=== PATIENT | male | born 2000 | race African-American/Black ===

== ENCOUNTER 2023-05-27 16:19 | Inpatient (IN) | payer OTHER, SELFPAY ==
[2023-05-27 16:27] VITALS: BP 150/84; PULSE 94; RESP 18; TEMP 36.8; O2SAT 98; BMI 24.4
--- NOTE | 2023-05-27 16:36 | ED.GENADULT ---
HPI - General Adult General Chief complaint: Psychiatric Symptoms Stated complaint: R lower flank pain w/ blood in urine Time Seen by Provider: 05/27/23 16:36 Source: patient, EMS, RN notes reviewed and old records reviewed Mode of arrival: EMS History of Present Illness HPI narrative: 23-year-old male with no known past medical history presenting to the ED via EMS complaining of suicidal ideations without plan, requesting help for his mental health. Patient reports intermittent hematuria over the past few weeks, was seen at a hospital in [place] and told he has a parasite, prescribed medication which he has been non compliant. Also reports RLQ abdominal pain. has been going with his prescribed medications however ran out a day ago. Reports using THC, denies other illicit substances or EtOH. Denies hallucination/HI, diarrhea/constipation, fever, dysuria Onset (ago): day(s) Related Data Home Medications Medication Instructions Recorded Confirmed No Known Home Meds 05/27/23 05/27/23 Allergies Allergy/AdvReac Type Severity Reaction Status Date / Time No Known Allergies Allergy Verified 05/27/23 16:46 Review of Systems Review of Systems: Constitutional: No Fever, No Fatigue, No Malaise ENT/Mouth: No Ear Pain, No Nasal Congestion, No sore throat, No Rhinorrhea, No Swallowing Difficulty Eyes: No Eye Pain, No Swelling, No Redness, No Vision Changes Cardiovascular: No Chest Pain, No SOB, No Edema, No Palpitations Respiratory: No Cough, No Sputum, No Dyspnea Gastrointestinal: No Nausea, No Vomiting, No Diarrhea, No Constipation, + Abdominal pain, No Hematochezia, No Melena Genitourinary: No irregular bleeding, No Dysuria, No Urinary Frequency, + Hematuria, No Urinary Incontinence/retention, No Urgency, No Flank Pain Musculoskeletal: No joint pain, No Myalgias, No Joint Swelling Skin: No Skin Lesions, No rash Neuro: No Weakness, No Numbness, No Headache Psych: No Anxiety/Panic, +Depression, + SI, No HI/AH/VH, + Social Issues, Yes all other systems are reviewed and are negative Constitutional: Constitutional: Reports as per [facility] Past Medical History Attestation statement: The following information was validated with the patient. Source: old records reviewed Social History Social History Alcohol intake: never Smoked in Last 30 Days: Yes Use of substances other than those prescribed or required for medical reasons: Yes Substance Use Type: Marijuana Advance Directives: No Advance Directives Information Provided: No Physical Exam ED Vital Signs: Vital Signs - 24 hr 05/27/23 16:27 Temperature 98.2 F Pulse Rate 94 Respiratory Rate 18 Blood Pressure 150/84 H Pulse Oximetry 98 Oxygen Delivery Method Room Air BMI result Body Mass Index 24.4 Const General: cooperative, healthy appearing and no acute distress Orientation/consciousness: patient oriented x3 Limitations: no limitations HENMT Head: Yes normal to inspection and Yes atraumatic Ears: hearing grossly normal bilaterally General nose exam: Normal external nose present Face and sinus: Yes normal facial exam Eyes General: appearance normal, both eyes and all related structures EOM: EOMs intact bilaterally Neck Neck: Yes normal visual inspection and Yes no meningeal signs Resp Effort & Inspection: normal respiratory effort and no respiratory distress Auscultation: clear to auscultation bilaterally Cardio Rate: regular rate Heart sounds: S1 normal heart sound present and S2 normal heart sound present GI Inspection: Yes normal to inspection Palpation (GI): Soft to palpation, nontender, no guarding and not rigid General: Yes no CVA tenderness Back/Spine/Pelvis Back: no CVA tenderness Skin Rashes: no rashes Wounds: no wounds Neuro General: patient oriented x3, tone normal and no meningeal signs Cranial nerves: Yes CN's II-XII intact bilaterally Gait exam (Neuro): Normal gait present Extrem General: Yes normal to inspection Psych Appearance: grossly normal Attitude: cooperative Thought content: Suicidality present, no homicidality and Depressive thoughts present Course Course Course Narrative: -labs reassuring/unremarkable. UA negative without blood -tox screen positive for fentanyl. > patient medically cleared for CARE team evaluation. Physician observation initiated at 22:40 -0230--ED care transferred to Dr. Adair pending CARE eval Medical Decision Making Medical Decision Making MDM Narrative: 23-year-old male with no known past medical history presenting to the ED via EMS complaining of suicidal ideations without plan, requesting help for his mental health. On exam vital signs stable, NAD, nontoxic appearing, expresses increasing depression/suicidality, abdomen soft/nontender, no CVAT. Concern for medication noncompliance vs depression vs UTI or ?Renal stone. Low suspicion for pyelo, appendicitis, diverticulitis, testicular torsion without tenderness on exam Plan: Labs, tox screen, UA, CARE team consult Please refer to course for remaining clinical decision making, interpretation of labs/imaging results, and discussions with consultants and/or family members. Differential Diagnosis Differential Diagnoses: The differential diagnosis associated with the presentation includes As above Admission/Observation Consideration of admission/observation: Escalation of care including admission/observation considered Consult Healthcare Provider Management of the patient was discussed with: Behavioral Health Provider Lab Data MDM Lab Attestation statement: I reviewed the patient's lab results. 05/27/23 17:11 05/27/23 17:11 Labs: Lab Results 05/27/23 Range/Units 17:11 WBC 7.5 (4.8-10.8) X10*3/uL RBC 5.81 H (4.60-5.80) X10*6/uL Hgb 16.0 (14.0-18.0) g/dl Hct 47.9 (42.0-52.0) % MCV 82.4 (80.0-98.0) fL MCH 27.5 (27.0-33.0) pg MCHC 33.4 (31.0-36.0) g/dl RDW 12.4 (11.0-16.0) % Plt Count 149 L (160-400) X10*3/uL MPV 10.2 (9.4-12.4) fL Immature Gran % (Auto) 0.3 (0.0-0.4) % Neut % (Auto) 76.9 H (45-73) % Lymph % (Auto) 15.9 L (20-40) % [place] % (Auto) 6.5 (2-11) % Eos % (Auto) 0.1 (0-4) % Baso % (Auto) 0.3 (0-2) % Lymph # (Auto) 1.2 (1.2-4.9) X10*3/uL [place] # (Auto) 0.5 (0.1-1.2) X10*3/uL Eos # (Auto) 0.0 (0.0-0.4) X10*3/uL Baso # (Auto) 0.0 (0.0-0.2) X10*3/uL Abs Immat Gran (auto) 0.02 (0.00-0.03) X10*3/uL Absolute Neuts (auto) 5.8 (2.0-8.3) x10*3/uL Absolute Nucleated RBC 0.000 (0.0-0.012) X10*3/uL Nucleated RBC % (auto) 0.0 (0.0-0.2) /100WBC Sodium 141 (135-145) mmol/L Potassium 4.3 (3.3-5.1) mmol/L Chloride 104 (96-108) mmol/L Carbon Dioxide 26 (22-29) mmol/L Anion Gap 15 (12-20) BUN 19 H (9-16) mg/dL Creatinine 1.21 (0.5-1.4) mg/dL Estim Creat Clear Calc 102.4 Estimated GFR > 60 Random Glucose 92 (60-115) mg/dL Calcium 9.8 (8.4-10.2) mg/dL Total Bilirubin 0.5 (0.0-1.0) mg/dL AST 22 (5-37) U/L ALT 16 (0-40) U/L Alkaline Phosphatase 43 (39-117) U/L Total Protein 7.7 (6.5-8.0) g/dL Albumin 4.7 (3.5-5.0) g/dL Lipase 15 (8-78) U/L Urine Color Yellow Urine Appearance Clear Urine pH 6.0 (5.0-9.0) Ur Specific [place] 1.025 (1.005-1.025) Urine Protein Negative (Neg-Trace) mg/dL Urine Glucose (UA) Negative (Negative) mg/dL Urine Ketones Trace (Negative) mg/dL Urine Blood Negative (Negative) Urine Nitrite Negative (Negative) Ur Leukocyte Esterase Negative (Negative) Salicylates < 5.0 L (15-30) mg/dL Urine Opiates Screen Not Detected (Not Detect) Urine Fentanyl Screen POSITIVE H (Not Detect) Acetaminophen < 17 (<30) mcg/mL Ur Barbiturates Screen Not Detected (Not Detect) Ur Phencyclidine Scrn Not Detected (Not Detect) Ur Amphetamines Screen Not Detected (Not Detect) U Benzodiazepines Scrn Not Detected (Not Detect) Urine Cocaine Screen Not Detected (Not Detect) U Marijuana (THC) Screen Not Detected (Not Detect) Ethyl Alcohol < 10 mg/dL COVID-19 ([facility]A) Negative (Negative) COVID-19 Clin Com See Note Radiology Impression Discussion of test interpretation with radiology: I have reviewed the radiologist's reading. Independent Historian Clinical information obtained from an independent historian. History obtained from or confirmed by: EMS External Record Review External record reviewed: Inpatient record, Office record, Outpatient record, Prior outpatient labs, Prior outpatient radiology, Primary care record and Outside ED record Tests considered The following testing was considered but not selected: As above Social Determinants Patient?s care significantly limited by Social Determinants of Health including: Inadequate housing, Low income, Alcoholism and drug addiction in family, Problems related to primary support group, Unemployment and Other Social Determinant of Health Discharge Plan Discharge Clinical Impression: Suicidal ideation Patient Disposition: Still a Patient Prescriptions: No Action No Known Home Meds Interventions: [place]-Suicide Risk Severity Scale Last Done: 05/27/23 16:51
[2023-05-27 17:17] LABS: MANUAL DIFF FLAG NO
[2023-05-27 17:21] LABS: Appearance Urine Clear; Color Urine Yellow; Glucose Urine UA Negative (Negative); Leukocyte Esterase Urine Negative (Negative); Nitrite Urine Negative (Negative); Specific Gravity - Urine 1.025 (1.005-1.025); Urine Blood Negative (Negative); Urine Ketones Trace mg/dL (Negative); Urine Protein Negative (Neg-Trace)
[2023-05-27 17:22] LABS: Basophils Percent Auto 0.3 % (0-2); Eosinophils Percent Auto 0.1 % (0-4); Hematocrit 47.9 % (42.0-52.0); Imm Gran Abs Auto 0.02 X10*3/uL (0.00-0.03); Imm Gran Pct Auto 0.3 % (0.0-0.4); Lymphocytes Absolute Auto 1.2 X10*3/uL (1.2-4.9); Lymphocytes Percent Auto 15.9 % (20-40); Mean Corpuscular HGB Conc 33.4 g/dl (31.0-36.0); Mean Corpuscular Hemoglobin 27.5 pg (27.0-33.0); Mean Corpuscular Volume 82.4 fL (80.0-98.0); Mean Platelet Volume 10.2 fL (9.4-12.4); Monocytes Absolute Auto 0.5 X10*3/uL (0.1-1.2); Monocytes Percent Auto 6.5 % (2-11); Neutrophils Absolute Auto 5.8 x10*3/uL (2.0-8.3); Neutrophils Percent Auto 76.9 % (45-73); Platelet Count 149 X10*3/uL (160-400); Red Blood Count 5.81 X10*6/uL (4.60-5.80); Red Cell Distribution Width 12.4 % (11.0-16.0); White Blood Count 7.5 X10*3/uL (4.8-10.8)
[2023-05-27 17:26] LABS: Amphetamine Screen Urine Not Detected (Not Detect); Barbiturates, Urine Not Detected (Not Detect); Benzodiazepines Screen Urine Not Detected (Not Detect); Cannabinoid Screen Urine Not Detected (Not Detect); Cocaine Screen Urine Not Detected (Not Detect); Fentanyl, urine POSITIVE (Not Detect); Opiate Screen Urine Not Detected (Not Detect); Phencyclidine Screen Urine Not Detected (Not Detect)
[2023-05-27 17:34] LABS: COVID-19 Test Negative (Negative); IDNOW Serial# 08D9AD1C
[2023-05-27 17:50] LABS: Acetaminophen LAB < 17 mcg/mL (<30); Alanine Aminotransferase 16 U/L (0-40); Albumin Level 4.7 g/dL (3.5-5.0); Alkaline Phosphatase 43 U/L (39-117); Anion Gap 15 (12-20); Aspartate Amino Transferase 22 U/L (5-37); Bilirubin Total 0.5 mg/dL (0.0-1.0); Blood Urea Nitrogen 19 mg/dL (9-16); Calcium 9.8 mg/dL (8.4-10.2); Carbon Dioxide 26 mmol/L (22-29); Chloride 104 mmol/L (96-108); Creatinine Clr Calc Pharmacy 102.4; Estimated Glomerular Filt Rate > 60; Ethanol < 10 mg/dL; Glucose Random 92 mg/dL (60-115); Lipase 15 U/L (8-78); Potassium 4.3 mmol/L (3.3-5.1); Salicylate < 5.0 mg/dL (15-30); Sodium 141 mmol/L (135-145); Total Protein 7.7 g/dL (6.5-8.0)
--- NOTE | 2023-05-27 19:45 | PC.NURSE ---
pt sleeping w/no distress. breathing well. +CMS. airway intact.
[2023-05-28 06:00] VITALS: BP 118/59; PULSE 62; RESP 16; TEMP 37.1; O2SAT 99
--- NOTE | 2023-05-28 06:33 | PC.NURSE ---
Patient slept through the night, no distress observed/reported, behavior non concerning, med rec completed/currently not on any medication, VSS, disposition per care team is section 12 inpatient bed search, labs completed/resulted, will continue to monitor.
[2023-05-28 15:25] VITALS: BP 142/64; PULSE 77; RESP 15; TEMP 36.4; O2SAT 98
--- NOTE | 2023-05-28 16:06 | PC.NURSE ---
Huy was in his room resting for most of the shift, appetite is good. No scheduled medications. No behavioral concerns.
[2023-05-28 16:26] VITALS: BP 130/61; PULSE 60; RESP 16; TEMP 36.4; BMI 23.9
[2023-05-28 16:54] VITALS: BP 130/61; PULSE 60; RESP 16; TEMP 36.4; O2SAT 98
--- NOTE | 2023-05-28 17:50 | PC.ADMIT ---
Pt is a 23y/o -[place] male admitted for increased depression and SI. Pt appears calm and cooperative, alert and oriented x4, Vitals sign stable, Covid negative, Tox screen positive for fentanyl. Pt reported that he is homeless, has no established outpatient providers including PCP, Psychiatrist and Psychotherapist and states he will need help establishing providers/half-way placement. Speech is within normal limit but low in terms of tone and volume. Pt reports low depression and anxiety at this time. denies SI/HI/AH/VH. Pt currently has impaired insight, judgment and impulse control as evidenced by Pt's history and presentation. Pt accepts to take flu shot as well as Nicotine gum. Admission orders obtained. Start tx plan. Pt is currently in his room resting, respirations are regular and unlabored. No apparent distress noted.
[2023-05-28] MEDS: traZODone HCL 50 MG TABLET PO (20:31)
[2023-05-29 06:00] VITALS: BP 102/48; PULSE 56; RESP 16; TEMP 36.5; O2SAT 97
[2023-05-29 08:35] LABS: Alanine Aminotransferase 13 U/L (0-40); Albumin Level 3.9 g/dL (3.5-5.0); Alkaline Phosphatase 37 U/L (39-117); Anion Gap 7 (12-20); Aspartate Amino Transferase 15 U/L (5-37); Bilirubin Total 0.3 mg/dL (0.0-1.0); Blood Urea Nitrogen 13 mg/dL (9-16); Carbon Dioxide 28 mmol/L (22-29); Chloride 108 mmol/L (96-108); Cholesterol 148 mg/dL (<200); Creatinine Clr Calc Pharmacy 104.1; Estimated Glomerular Filt Rate > 60; Glucose Fasting 101 mg/dL (60-99); HDL Cholesterol 53 mg/dL (>40); LDL Cholesterol Calculated 87 mg/dL (<100); Potassium 3.9 mmol/L (3.3-5.1); Sodium 139 mmol/L (135-145); Total Protein 6.4 g/dL (6.5-8.0); Triglycerides 44 mg/dL (<150)
--- NOTE | 2023-05-29 09:36 | HO.PSYADMNOT ---
HPI Date of Service: 05/29/23 Chief Complaint: SI Sources of Information: patient interviewed, chart reviewed and crisis/core team assessment reviewed HPI Subjective Notes: Regan Warning and Conditional Voluntary Narrative: Patient is a 23-year-old male, born in [facility] and living in [facility] since 10 years old who presents with depression and SI in the face of homelessness and being out of medication. Patient was recently at another hospital in [facility] and said he had medications there but ran out. He said it was Risperdal which helped his depression and he would like to started again. Patient says that he has been struggling with mental health issues for the past 3 or 4 years. Around that time he had conflicts with his family, lots of arguments any eventually had him go to a hospital and got a restraining order on; since then he has only briefly interacted with his family and has been otherwise homeless. He said for about a year he was at a program and on Zyprexa. He said there might have been a diagnosis of schizophrenia but he says his main diagnosis is depression. Patient denies any AVH or paranoid delusional thinking. He reiterates that he is very depressed and started having suicidal thoughts. Patient reports he has a parasite for which he was being given medications that he got at his last hospital but is not sure the name (creative writer cannot find any prescriptions listed). Patient denies any history of manic type episodes or behaviors; denies any drug or alcohol use or abuse other than cannabis which he smokes daily. Denies history of trauma. Past Psychiatric History: past psychiatric hospitalizations med trials: zyprexa, risperdal History of 2 suicide attempts by hanging, overdose Medical Evaluation Reviewed: Yes [facility] Medical History (Updated 05/29/23 @ 15:27 by David Peñaloza MD) Schizoaffective disorder, depressive type Family History: deferred Social History: born in [facility]; lived in [place]. Moved to [facility] around 10 years old. Patient said he has been traveling around [place] and sometimes in [facility], staying in very shelters Patient is estranged from his family since he was diagnosed with a mental illness about 3 or 4 years ago Substance History: Cannabis daily Trauma History: Denies Diagnostics Vital Signs (24Hr): Vital Signs - 24 hr 05/28/23 15:25 05/28/23 16:26 05/28/23 16:54 Temperature 97.5 F 97.5 F 97.5 F Pulse Rate 77 60 60 Respiratory Rate 15 16 16 Blood Pressure 142/64 H 130/61 130/61 Pulse Oximetry 98 98 Oxygen Delivery Method Room Air Room Air 05/29/23 06:00 Temperature 97.7 F Pulse Rate 56 Respiratory Rate 16 Blood Pressure 102/48 L Pulse Oximetry 97 Oxygen Delivery Method Room Air BMI result Body Mass Index 23.9 Labs 05/27/23 17:11 05/29/23 07:50 Labs: Laboratory Results - last 48 hr 05/27/23 05/29/23 17:11 07:50 WBC 7.5 RBC 5.81 H Hgb 16.0 Hct 47.9 MCV 82.4 MCH 27.5 MCHC 33.4 RDW 12.4 Plt Count 149 L MPV 10.2 Immature Gran % (Auto) 0.3 Neut % (Auto) 76.9 H Lymph % (Auto) 15.9 L [place] % (Auto) 6.5 Eos % (Auto) 0.1 Baso % (Auto) 0.3 Lymph # (Auto) 1.2 [place] # (Auto) 0.5 Eos # (Auto) 0.0 Baso # (Auto) 0.0 Abs Immat Gran (auto) 0.02 Absolute Neuts (auto) 5.8 Absolute Nucleated RBC 0.000 Nucleated RBC % (auto) 0.0 Sodium 141 139 Potassium 4.3 3.9 Chloride 104 108 Carbon Dioxide 26 28 Anion Gap 15 7 L BUN 19 H 13 Creatinine 1.21 1.19 Estim Creat Clear Calc 102.4 104.1 Estimated GFR > 60 > 60 Random Glucose 92 Fasting Glucose 101 H Calcium 9.8 9.0 D Total Bilirubin 0.5 0.3 AST 22 15 ALT 16 13 Alkaline Phosphatase 43 37 L Total Protein 7.7 6.4 L Albumin 4.7 3.9 Triglycerides 44 Cholesterol 148 LDL Cholesterol, Calc 87 HDL Cholesterol 53 Lipase 15 Urine Color Yellow Urine Appearance Clear Urine pH 6.0 Ur Specific [place] 1.025 Urine Protein Negative Urine Glucose (UA) Negative Urine Ketones Trace Urine Blood Negative Urine Nitrite Negative Ur Leukocyte Esterase Negative Salicylates < 5.0 L Urine Opiates Screen Not Detected Urine Fentanyl Screen POSITIVE H Acetaminophen < 17 Ur Barbiturates Screen Not Detected Ur Phencyclidine Scrn Not Detected Ur Amphetamines Screen Not Detected U Benzodiazepines Scrn Not Detected Urine Cocaine Screen Not Detected U Marijuana (THC) Screen Not Detected Ethyl Alcohol < 10 COVID-19 ([facility]) Negative COVID-19 Clin Com See Note Meds/Allergies Meds Home Medications Medication Instructions Recorded Confirmed Type No Known Home Meds 05/27/23 05/27/23 History Allergies Allergies Allergy/AdvReac Type Severity Reaction Status Date / Time No Known Allergies Allergy Verified 05/27/23 16:46 Mental Status Exam Mental Status Exam Narrative: Pt is alert and oriented; behavior is cooperative, polite, quiet and calm, lying in bed; patient is not in distress; dressed in hospital attire with unkempt hair and marginal hygiene; mood is described as depressed and affect congruent, blunted; eye contact appropriate; Speech is a little soft and a little slow; normal prosody; psychomotor retardation present; thought process is goal directed; Thought content is somewhat vacuous but on treatment for depression; no paranoid or delusional thoughts expressed; suicidal ideation present; no HI. Perhaps some mild speech latency; denies AVH Patients insight and judgment impaired Assessment & Plan Assessment & Plan (1) Schizoaffective disorder, depressive type: Status: Acute Code(s): F25.1 - Schizoaffective disorder, depressive type Plan Ptient is a 23-year-old male, born in [facility] and living in [facility] since 10 years old who presents with depression and SI in the face of homelessness and being out of medication. Patient was recently at another hospital in [facility] and said he had medications there but ran out. -patient reports that his only symptom is depression with SI; however he remembers the medication Risperdal having been helpful for his depression; also has been on Zyprexa, Cogentin and said at 1 point he thinks he was diagnosed with schizophrenia. Patient appears depressed. Could also be negative symptoms from psychosis. However he denies any other positive symptoms of psychosis and though somewhat reticent, so far he is organized in speech and behavior. Given his reported history of antipsychotic medication having been helpful will restart Risperdal -not sure what to make of his comment about having a parasite and being treated with medications; creative writer could not find history of prescription Plan: CV Q 15 minute checks Will restart Risperdal 1 mg b.i.d.; no idea what past dose was; however this comes in long-acting injectable which might be helpful for him Will start Cogentin 0.5 mg b.i.d. but make PRN Positive for fentanyl however patient denies any intentional opiate use and not in withdrawal; denies EtOH use Will attempt collateral (which he says is the only way he remains in contact with his family) Patient educated on: diagnosis, medication risk/benefits and substance abuse Informed Consent: understands Reason for continued inpatient stay Substantial Risk for: inability to function Statement Statement: I have reviewed the history and physical and performed a pertinent examination on my patient. No changes have occurred unless specified. If the History and Physical was not performed prior to admission, the Hospitalist's service will be consulted for completing the admission physical. Time Spent With Patient Time: Total time managing care of this patient today ____ minutes.
[2023-05-29] MEDS: risperiDONE 1 MG TABLET PO ×2 (14:53→19:56)
[2023-05-29 18:00] VITALS: BP 127/58; PULSE 68; TEMP 36.3
[2023-05-30 06:00] VITALS: BP 154/60; PULSE 84; RESP 16; TEMP 36.4; O2SAT 100
[2023-05-30] MEDS: risperiDONE 1 MG TABLET PO ×2 (08:45→21:18)
--- NOTE | 2023-05-30 10:53 | HO.PSYCHPN ---
Subjective Subjective Date of Service: 05/30/23 Reason For Visit: SI Interim History: Patient seen and discussed. Patient seen pacing the evans. He was polite and cooperative. He reported he feels Still a little depressed but more focused since being here. Reports he is tolerating medications well. He denies suicidality. He appears preoccupied with internal stimuli and has some latency in response. He has had no behavioral outbursts. Medication Compliance: Yes Review of Systems Review of Systems Constitutional: No Fever, No Fatigue, No Malaise ENT/Mouth: No Ear Pain, No Nasal Congestion, No sore throat, No Rhinorrhea, No Swallowing Difficulty Eyes: No Eye Pain, No Swelling, No Redness, No Vision Changes Cardiovascular: No Chest Pain, No SOB, No Edema, No Palpitations Respiratory: No Cough, No Sputum, No Dyspnea Gastrointestinal: No Nausea, No Vomiting, No Diarrhea, No Constipation, + Abdominal pain, No Hematochezia, No Melena Genitourinary: No irregular bleeding, No Dysuria, No Urinary Frequency, + Hematuria, No Urinary Incontinence/retention, No Urgency, No Flank Pain Musculoskeletal: No joint pain, No Myalgias, No Joint Swelling Skin: No Skin Lesions, No rash Neuro: No Weakness, No Numbness, No Headache Psych: No Anxiety/Panic, +Depression, + SI, No HI/AH/VH, + Social Issues, Yes all other systems are reviewed and are negative Constitutional: Reports as per HPI Mental Status Exam Mental Status Exam Narrative: Pt is alert and oriented; behavior is cooperative, polite, quiet and calm, lying in bed; patient is not in distress; dressed in hospital attire with unkempt hair and marginal hygiene; mood is described as depressed and affect congruent, blunted; eye contact appropriate; Speech is a little soft and a little slow; normal prosody; psychomotor retardation present; thought process is goal directed; Thought content is somewhat vacuous but on treatment for depression; no paranoid or delusional thoughts expressed; suicidal ideation present; no HI. Perhaps some mild speech latency; denies AVH Patients insight and judgment impaired Diagnostics Vital Signs (24Hr): Vital Signs - 24 hr 05/29/23 18:00 05/30/23 06:00 Temperature 97.4 F 97.5 F Pulse Rate 68 84 Respiratory Rate 16 Blood Pressure 127/58 L 154/60 H Pulse Oximetry 100 Oxygen Delivery Method Room Air BMI result Body Mass Index 23.9 Labs 05/27/23 17:11 05/29/23 07:50 Labs: Laboratory Results - last 48 hr 05/29/23 07:50 Sodium 139 Potassium 3.9 Chloride 108 Carbon Dioxide 28 Anion Gap 7 L BUN 13 Creatinine 1.19 Estim Creat Clear Calc 104.1 Estimated GFR > 60 Fasting Glucose 101 H Calcium 9.0 D Total Bilirubin 0.3 AST 15 ALT 13 Alkaline Phosphatase 37 L Total Protein 6.4 L Albumin 3.9 Triglycerides 44 Cholesterol 148 LDL Cholesterol, Calc 87 HDL Cholesterol 53 Medications Medications Current Medications Acetaminophen (Acetaminophen 325 Mg Tablet) 650 mg PO Q6H PRN PRN Reason: Headache/Pain Mild Scale (1-3) Al Hydroxide/Mg Hydroxide (Magnesium Hydrox/Alum Hydrox 30 Ml Oral.Susp) 30 ml PO Q6H PRN PRN Reason: Heartburn/Nausea Benztropine Mesylate (Benztropine Mesylate 0.5 Mg Tablet) 0.5 mg PO BID PRN PRN Reason: Dystonia/EPS Hydroxyzine HCl (Hydroxyzine Hcl 25 Mg Tablet) 25 mg PO Q6H PRN PRN Reason: Anxiety Magnesium Hydroxide (Milk Of Magnesia 30 Ml Oral.Susp) 30 ml PO DAILY PRN PRN Reason: Constipation Risperidone (Risperidone 1 Mg Tablet) 1 mg PO BID AIDAN Last Admin: 05/30/23 08:45 Dose: 1 mg Trazodone HCl (Trazodone Hcl 50 Mg Tablet) 50 mg PO BEDTIME MRX1 PRN PRN Reason: Insomnia Last Admin: 05/28/23 20:31 Dose: 50 mg Allergies Allergies Allergy/AdvReac Type Severity Reaction Status Date / Time No Known Allergies Allergy Verified 05/27/23 16:46 Assessment & Plan Assessment & Plan (1) Schizoaffective disorder, depressive type: Status: Acute Code(s): F25.1 - Schizoaffective disorder, depressive type Plan Ptient is a 23-year-old male, [facility] and living in [facility] since 10 years old who presents with depression and SI in the face of homelessness and being out of medication. Patient was recently at another hospital in [facility] and said he had medications there but ran out. -patient reports that his only symptom is depression with SI; however he remembers the medication Risperdal having been helpful for his depression; also has been on Zyprexa, Cogentin and said at 1 point he thinks he was diagnosed with schizophrenia. Patient appears depressed. Could also be negative symptoms from psychosis. However he denies any other positive symptoms of psychosis and though somewhat reticent, so far he is organized in speech and behavior. Given his reported history of antipsychotic medication having been helpful will restart Risperdal -not sure what to make of his comment about having a parasite and being treated with medications; communications writer could not find history of prescription Plan: CV Q 15 minute checks Will restart Risperdal 1 mg b.i.d.; no idea what past dose was; however this comes in long-acting injectable which might be helpful for him Will start Cogentin 0.5 mg b.i.d. but make PRN Positive for fentanyl however patient denies any intentional opiate use and not in withdrawal; denies EtOH use Will attempt collateral (which he says is the only way he remains in contact with his family) 05/30: Recently restarted Risperidone. Continue same. Reason for continued inpatient stay Substantial Risk for: inability to function and rapid decompensation Time Spent With Patient Time: Total time managing care of this patient today ____ minutes.
[2023-05-30] MEDS: traZODone HCL 50 MG TABLET PO (21:18)
[2023-05-30 21:50] VITALS: BP 117/57; PULSE 56; RESP 16; TEMP 36.7; O2SAT 100
[2023-05-31 08:20] VITALS: BP 123/60; PULSE 56; RESP 16; TEMP 35.9; O2SAT 98
[2023-05-31] MEDS: risperiDONE 1 MG TABLET PO ×2 (09:28→19:47)
--- NOTE | 2023-05-31 13:11 | HO.PSYCHPN ---
Subjective Subjective Date of Service: 05/31/23 Reason For Visit: SI Interim History: Patient seen and discussed. Patient seen pacing the evans. He was polite and cooperative. He reported he feels I'm better since being here. Reports he is tolerating medications well. He denies suicidality. He appears preoccupied and has some latency in response. He has had no behavioral outbursts. Review of Systems Review of Systems Constitutional: No Fever, No Fatigue, No Malaise ENT/Mouth: No Ear Pain, No Nasal Congestion, No sore throat, No Rhinorrhea, No Swallowing Difficulty Eyes: No Eye Pain, No Swelling, No Redness, No Vision Changes Cardiovascular: No Chest Pain, No SOB, No Edema, No Palpitations Respiratory: No Cough, No Sputum, No Dyspnea Gastrointestinal: No Nausea, No Vomiting, No Diarrhea, No Constipation, + Abdominal pain, No Hematochezia, No Melena Genitourinary: No irregular bleeding, No Dysuria, No Urinary Frequency, + Hematuria, No Urinary Incontinence/retention, No Urgency, No Flank Pain Musculoskeletal: No joint pain, No Myalgias, No Joint Swelling Skin: No Skin Lesions, No rash Neuro: No Weakness, No Numbness, No Headache Psych: No Anxiety/Panic, +Depression, + SI, No HI/AH/VH, + Social Issues, Yes all other systems are reviewed and are negative Constitutional: Reports as per HPI Mental Status Exam Mental Status Exam Narrative: Pt is alert and oriented; behavior is cooperative, polite, quiet and calm, lying in bed; patient is not in distress; dressed in hospital attire with unkempt hair and marginal hygiene; mood is described as depressed and affect congruent, blunted; eye contact appropriate; Speech is a little soft and a little slow; normal prosody; psychomotor retardation present; thought process is goal directed; Thought content is somewhat vacuous but on treatment for depression; no paranoid or delusional thoughts expressed; suicidal ideation present; no HI. Perhaps some mild speech latency; denies AVH Patients insight and judgment impaired Diagnostics Vital Signs (24Hr): Vital Signs - 24 hr 05/30/23 21:50 05/31/23 08:20 Temperature 98.0 F 96.6 F L Pulse Rate 56 56 Respiratory Rate 16 16 Blood Pressure 117/57 L 123/60 Pulse Oximetry 100 98 Oxygen Delivery Method Room Air Room Air BMI result Body Mass Index 23.9 Labs 05/27/23 17:11 05/29/23 07:50 Medications Medications Current Medications Acetaminophen (Acetaminophen 325 Mg Tablet) 650 mg PO Q6H PRN PRN Reason: Headache/Pain Mild Scale (1-3) Al Hydroxide/Mg Hydroxide (Magnesium Hydrox/Alum Hydrox 30 Ml Oral.Susp) 30 ml PO Q6H PRN PRN Reason: Heartburn/Nausea Benztropine Mesylate (Benztropine Mesylate 0.5 Mg Tablet) 0.5 mg PO BID PRN PRN Reason: Dystonia/EPS Hydroxyzine HCl (Hydroxyzine Hcl 25 Mg Tablet) 25 mg PO Q6H PRN PRN Reason: Anxiety Magnesium Hydroxide (Milk Of Magnesia 30 Ml Oral.Susp) 30 ml PO DAILY PRN PRN Reason: Constipation Risperidone (Risperidone 1 Mg Tablet) 1 mg PO BID [facility] Last Admin: 05/31/23 09:28 Dose: 1 mg Trazodone HCl (Trazodone Hcl 50 Mg Tablet) 50 mg PO BEDTIME MRX1 PRN PRN Reason: Insomnia Last Admin: 05/30/23 21:18 Dose: 50 mg Allergies Allergies Allergy/AdvReac Type Severity Reaction Status Date / Time No Known Allergies Allergy Verified 05/27/23 16:46 Assessment & Plan Assessment & Plan (1) Schizoaffective disorder, depressive type: Status: Acute Code(s): F25.1 - Schizoaffective disorder, depressive type Plan Ptient is a 23-year-old male, born in [facility] and living in [facility] since 10 years old who presents with depression and SI in the face of homelessness and being out of medication. Patient was recently at another hospital in [facility] and said he had medications there but ran out. -patient reports that his only symptom is depression with SI; however he remembers the medication Risperdal having been helpful for his depression; also has been on Zyprexa, Cogentin and said at 1 point he thinks he was diagnosed with schizophrenia. Patient appears depressed. Could also be negative symptoms from psychosis. However he denies any other positive symptoms of psychosis and though somewhat reticent, so far he is organized in speech and behavior. Given his reported history of antipsychotic medication having been helpful will restart Risperdal -not sure what to make of his comment about having a parasite and being treated with medications; junior technical writer could not find history of prescription Plan: CV Q 15 minute checks Will restart Risperdal 1 mg b.i.d.; no idea what past dose was; however this comes in long-acting injectable which might be helpful for him Will start Cogentin 0.5 mg b.i.d. but make PRN Positive for fentanyl however patient denies any intentional opiate use and not in withdrawal; denies EtOH use Will attempt collateral (which he says is the only way he remains in contact with his family) 05/30: Recently restarted Risperidone. Continue same. 05/31: Recently restarted Risperidone. Continue same. Reason for continued inpatient stay Substantial Risk for: inability to function and rapid decompensation Time Spent With Patient Time: Total time managing care of this patient today ____ minutes.
[2023-05-31 18:00] VITALS: BP 130/69; PULSE 60; TEMP 36.4; O2SAT 98
[2023-05-31] MEDS: traZODone HCL 50 MG TABLET PO (19:47)
[2023-06-01 09:01] VITALS: BP 124/58; PULSE 75; RESP 18; TEMP 36.1; O2SAT 98
[2023-06-01] MEDS: risperiDONE 1 MG TABLET PO ×2 (09:04→20:15)
--- NOTE | 2023-06-01 09:51 | P.PNPSI_ITS ---
Subjective Subjective Date of Service: 06/01/23 Reason For Visit: SI Interim History: met with patient; discussed with team; reviewed notes Patient reports that his depression is better. He says it is still somewhat there but significantly improved; denies any SI. Says medications are helping in his glad to get back onto it. Patient says it is okay for team to call his family to get history and gives his father's phone number. Patient pacing the evans much of the day during which time he makes Some odd hand movements. Diagnostics Vital Signs (24Hr): Vital Signs - 24 hr 05/31/23 18:00 06/01/23 09:01 Temperature 97.6 F 97.0 F Pulse Rate 60 75 Respiratory Rate 18 Blood Pressure 130/69 124/58 L Pulse Oximetry 98 98 Oxygen Delivery Method Room Air Room Air BMI result Body Mass Index 23.9 Labs 05/27/23 17:11 05/29/23 07:50 Medications Medications Current Medications Acetaminophen (Acetaminophen 325 Mg Tablet) 650 mg PO Q6H PRN PRN Reason: Headache/Pain Mild Scale (1-3) Al Hydroxide/Mg Hydroxide (Magnesium Hydrox/Alum Hydrox 30 Ml Oral.Susp) 30 ml PO Q6H PRN PRN Reason: Heartburn/Nausea Benztropine Mesylate (Benztropine Mesylate 0.5 Mg Tablet) 0.5 mg PO BID PRN PRN Reason: Dystonia/EPS Hydroxyzine HCl (Hydroxyzine Hcl 25 Mg Tablet) 25 mg PO Q6H PRN PRN Reason: Anxiety Magnesium Hydroxide (Milk Of Magnesia 30 Ml Oral.Susp) 30 ml PO DAILY PRN PRN Reason: Constipation Risperidone (Risperidone 1 Mg Tablet) 1 mg PO BID [facility] Last Admin: 06/01/23 09:04 Dose: 1 mg Trazodone HCl (Trazodone Hcl 50 Mg Tablet) 50 mg PO BEDTIME MRX1 PRN PRN Reason: Insomnia Last Admin: 05/31/23 19:47 Dose: 50 mg Allergies Allergies Allergy/AdvReac Type Severity Reaction Status Date / Time No Known Allergies Allergy Verified 05/27/23 16:46 Assessment & Plan Assessment & Plan (1) Schizoaffective disorder, depressive type: Status: Acute Code(s): F25.1 - Schizoaffective disorder, depressive type Plan Ptient is a 23-year-old male, born in [facility] and living in [facility] since 10 years old who presents with depression and SI in the face of homelessness and being out of medication. Patient was recently at another hospital in [facility] and said he had medications there but ran out. -patient reports that his only symptom is depression with SI; however he remembers the medication Risperdal having been helpful for his depression; also has been on Zyprexa, Cogentin and said at 1 point he thinks he was diagnosed with schizophrenia. Patient appears depressed. Could also be negative symptoms from psychosis. However he denies any other positive symptoms of psychosis and though somewhat reticent, so far he is organized in speech and behavior. Given his reported history of antipsychotic medication having been helpful will restart Risperdal -not sure what to make of his comment about having a parasite and being treated with medications; service writer advisor could not find history of prescription Hospital course: Reports he is depressed and denies any psychotic symptoms. Started on Risperdal which he said he took in the past and was helpful. 06/01 Patient reports that his depression is better. He says it is still somewhat there but significantly improved; denies any SI. Says medications are helping in his glad to get back onto it. Patient says it is okay for team to call his family to get history and gives his father's phone number. Patient pacing the evans much of the day during which time he makes Some odd hand movements. Otherwise remains in behavioral and impulse control. Pleasant on approach. Attending to ADLs Plan: CV Q 15 minute checks Continue Risperdal 1 mg b.i.d.; no idea what past dose was; however this comes in long-acting injectable which might be helpful for him Continue p.r.n. Cogentin 0.5 mg b.i.d. p.r.n. Positive for fentanyl however patient denies any intentional opiate use and not in withdrawal; denies EtOH use Will attempt collateral (which he says is the only way he remains in contact with his family) Patient educated on: diagnosis and medication risk/benefits Informed Consent: understands and further education needed Reason for continued inpatient stay Substantial Risk for: rapid decompensation Time Spent With Patient Time: Total time managing care of this patient today ____ minutes.
[2023-06-01] MEDS: Nicotine Polacrilex 2 MG GUM 4 MG BUCCAL ×3 (14:55→22:44)
[2023-06-01] MEDS: traZODone HCL 50 MG TABLET PO (20:15)
[2023-06-02] MEDS: Nicotine Polacrilex 2 MG GUM 4 MG BUCCAL ×3 (03:06→20:12)
[2023-06-02 06:00] VITALS: BP 133/77; PULSE 81; RESP 18; TEMP 27.2; O2SAT 98
[2023-06-02] MEDS: risperiDONE 1 MG TABLET PO ×2 (09:04→20:09)
--- NOTE | 2023-06-02 13:19 | HO.PSYCHPN ---
Subjective Subjective Date of Service: 06/02/23 Reason For Visit: SI Interim History: Met with patient; discussed with team Patient reports that he is feeling better, depression gone. He denies any AVH. Dulser inquired about him appearing internally preoccupied, talking to himself and patient explained that it is just a mantra he says to himself while meditating; same thing with the odd hand gestures, that it is a part of his meditation process. Discussed whether not to go up on Risperdal; patient defers to check writer salesperson saying is fine with him. Mental Status Exam Mental Status Exam Narrative: Pt is alert and oriented; behavior is cooperative, polite, quiet and calm; patient is not in distress; dressed in hospital attire with unkempt hair; improved hygiene; mood is described as better and affect congruent, less blunted, little more expression; eye contact appropriate; Speech is a little soft but normal volume and prosody; some mild psychomotor agitation present as he paces halls; thought process is goal directed; Thought content is somewhat vacuous but on treatment for depression; no paranoid or delusional thoughts expressed; no SI; no HI. Seems Internally preoccupied, though denies AVH Patients insight and judgment improved. Diagnostics Vital Signs (24Hr): Vital Signs - 24 hr 06/02/23 06:00 Temperature 81 F L Pulse Rate 81 Respiratory Rate 18 Blood Pressure 133/77 Pulse Oximetry 98 Oxygen Delivery Method Room Air BMI result Body Mass Index 23.9 Labs 05/27/23 17:11 05/29/23 07:50 Medications Medications Current Medications Acetaminophen (Acetaminophen 325 Mg Tablet) 650 mg PO Q6H PRN PRN Reason: Headache/Pain Mild Scale (1-3) Al Hydroxide/Mg Hydroxide (Magnesium Hydrox/Alum Hydrox 30 Ml Oral.Susp) 30 ml PO Q6H PRN PRN Reason: Heartburn/Nausea Benztropine Mesylate (Benztropine Mesylate 0.5 Mg Tablet) 0.5 mg PO BID PRN PRN Reason: Dystonia/EPS Hydroxyzine HCl (Hydroxyzine Hcl 25 Mg Tablet) 25 mg PO Q6H PRN PRN Reason: Anxiety Magnesium Hydroxide (Milk Of Magnesia 30 Ml Oral.Susp) 30 ml PO DAILY PRN PRN Reason: Constipation Nicotine Polacrilex (Nicotine Polacrilex 2 Mg Gum) 4 mg BUCCAL Q2H PRN PRN Reason: nicotine cravings Last Admin: 06/02/23 03:06 Dose: 4 mg Risperidone (Risperidone 1 Mg Tablet) 1 mg PO BID [facility] Last Admin: 06/02/23 09:04 Dose: 1 mg Trazodone HCl (Trazodone Hcl 50 Mg Tablet) 50 mg PO BEDTIME MRX1 PRN PRN Reason: Insomnia Last Admin: 06/01/23 20:15 Dose: 50 mg Allergies Allergies Allergy/AdvReac Type Severity Reaction Status Date / Time No Known Allergies Allergy Verified 05/27/23 16:46 Assessment & Plan Assessment & Plan (1) Schizoaffective disorder, depressive type: Status: Acute Code(s): F25.1 - Schizoaffective disorder, depressive type Plan Ptient is a 23-year-old male, born in [facility] and living in [facility] since 10 years old who presents with depression and SI in the face of homelessness and being out of medication. Patient was recently at another hospital in [facility] and said he had medications there but ran out. -patient reports that his only symptom is depression with SI; however he remembers the medication Risperdal having been helpful for his depression; also has been on Zyprexa, Cogentin and said at 1 point he thinks he was diagnosed with schizophrenia. Patient appears depressed. Could also be negative symptoms from psychosis. However he denies any other positive symptoms of psychosis and though somewhat reticent, so far he is organized in speech and behavior. Given his reported history of antipsychotic medication having been helpful will restart Risperdal -not sure what to make of his comment about having a parasite and being treated with medications; check writer salesperson could not find history of prescription Hospital course: Reports he is depressed and denies any psychotic symptoms. Started on Risperdal which he said he took in the past and was helpful. 06/01 Patient reports that his depression is better. He says it is still somewhat there but significantly improved; denies any SI. Says medications are helping in his glad to get back onto it. Patient says it is okay for team to call his family to get history and gives his father's phone number. Patient pacing the evans much of the day during which time he makes Some odd hand movements. Otherwise remains in behavioral and impulse control. Pleasant on approach. Attending to ADLs 06/02 patient reports depression is better, no SI. Remains intermittently internally preoccupied, talking to himself which he says is part of his meditation as he paces the halls. Intermittently making odd hand gestures as well. May increase Risperdal; will hold for another day Plan: CV Q 15 minute checks Continue Risperdal 1 mg b.i.d.; no idea what past dose was; however this comes in long-acting injectable which might be helpful for him Continue p.r.n. Cogentin 0.5 mg b.i.d. p.r.n. Positive for fentanyl however patient denies any intentional opiate use and not in withdrawal; denies EtOH use Will attempt collateral (which he says is the only way he remains in contact with his family) Patient educated on: diagnosis and medication risk/benefits Informed Consent: understands and further education needed Reason for continued inpatient stay Substantial Risk for: stable for discharge Time Spent With Patient Time: Total time managing care of this patient today ____ minutes.
[2023-06-02 18:55] VITALS: BP 124/76; PULSE 82; RESP 16; TEMP 36.1; O2SAT 97
[2023-06-02] MEDS: traZODone HCL 50 MG TABLET PO (20:09)
[2023-06-03 08:35] VITALS: BP 101/55; PULSE 53; RESP 16; TEMP 36.4; O2SAT 99
[2023-06-03] MEDS: risperiDONE 1 MG TABLET PO (09:04)
--- NOTE | 2023-06-03 09:39 | HO.PSYCHPN ---
Subjective Subjective Date of Service: 06/03/23 Reason For Visit: SI Interim History: Met with patient; discussed with team No change in presentation. pleasant, Cooperative on approach. Keeps to himself, either lying in bed or pacing the halls; remains internally preoccupied. Agrees to increasing Risperdal Mental Status Exam Mental Status Exam Narrative: Pt is alert and oriented; behavior is cooperative, polite, quiet and calm; patient is not in distress; dressed in hospital attire with unkempt hair; improved hygiene; mood is described as better and affect congruent, less blunted, little more expression; eye contact appropriate; Speech is a little soft but normal volume and prosody; some mild psychomotor agitation present as he paces halls; thought process is goal directed; Thought content is somewhat vacuous but on treatment for depression; no paranoid or delusional thoughts expressed; no SI; no HI. Seems Internally preoccupied, though denies AVH Patients insight and judgment improved. Diagnostics Vital Signs (24Hr): Vital Signs - 24 hr 06/02/23 18:55 06/03/23 08:35 Temperature 97.0 F 97.6 F Pulse Rate 82 53 Respiratory Rate 16 16 Blood Pressure 124/76 101/55 L Pulse Oximetry 97 99 Oxygen Delivery Method Room Air Room Air BMI result Body Mass Index 23.9 Labs 05/27/23 17:11 05/29/23 07:50 Medications Medications Current Medications Acetaminophen (Acetaminophen 325 Mg Tablet) 650 mg PO Q6H PRN PRN Reason: Headache/Pain Mild Scale (1-3) Al Hydroxide/Mg Hydroxide (Magnesium Hydrox/Alum Hydrox 30 Ml Oral.Susp) 30 ml PO Q6H PRN PRN Reason: Heartburn/Nausea Benztropine Mesylate (Benztropine Mesylate 0.5 Mg Tablet) 0.5 mg PO BID PRN PRN Reason: Dystonia/EPS Hydroxyzine HCl (Hydroxyzine Hcl 25 Mg Tablet) 25 mg PO Q6H PRN PRN Reason: Anxiety Magnesium Hydroxide (Milk Of Magnesia 30 Ml Oral.Susp) 30 ml PO DAILY PRN PRN Reason: Constipation Nicotine Polacrilex (Nicotine Polacrilex 2 Mg Gum) 4 mg BUCCAL Q2H PRN PRN Reason: nicotine cravings Last Admin: 06/02/23 20:12 Dose: 4 mg Risperidone (Risperidone 1 Mg Tablet) 1 mg PO BID [facility] Last Admin: 06/03/23 09:04 Dose: 1 mg Trazodone HCl (Trazodone Hcl 50 Mg Tablet) 50 mg PO BEDTIME MRX1 PRN PRN Reason: Insomnia Last Admin: 06/02/23 20:09 Dose: 50 mg Allergies Allergies Allergy/AdvReac Type Severity Reaction Status Date / Time No Known Allergies Allergy Verified 05/27/23 16:46 Assessment & Plan Assessment & Plan (1) Schizoaffective disorder, depressive type: Status: Acute Code(s): F25.1 - Schizoaffective disorder, depressive type Plan Ptient is a 23-year-old male, born in [facility] and living in [facility] since 10 years old who presents with depression and SI in the face of homelessness and being out of medication. Patient was recently at another hospital in [facility] and said he had medications there but ran out. -patient reports that his only symptom is depression with SI; however he remembers the medication Risperdal having been helpful for his depression; also has been on Zyprexa, Cogentin and said at 1 point he thinks he was diagnosed with schizophrenia. Patient appears depressed. Could also be negative symptoms from psychosis. However he denies any other positive symptoms of psychosis and though somewhat reticent, so far he is organized in speech and behavior. Given his reported history of antipsychotic medication having been helpful will restart Risperdal -not sure what to make of his comment about having a parasite and being treated with medications; administrative underwriter could not find history of prescription Hospital course: Reports he is depressed and denies any psychotic symptoms. Started on Risperdal which he said he took in the past and was helpful. 06/01 Patient reports that his depression is better. He says it is still somewhat there but significantly improved; denies any SI. Says medications are helping in his glad to get back onto it. Patient says it is okay for team to call his family to get history and gives his father's phone number. Patient pacing the veans much of the day during which time he makes Some odd hand movements. Otherwise remains in behavioral and impulse control. Pleasant on approach. Attending to ADLs 06/02 patient reports depression is better, no SI. Remains intermittently internally preoccupied, talking to himself which he says is part of his meditation as he paces the halls. Intermittently making odd hand gestures as well. May increase Risperdal; will hold for another day 06/03 remains internally preoccupied, talking to himself; agrees to increasing Risperdal Plan: CV Q 15 minute checks Increase to Risperdal 3 mg q.h.s.; will consider long-acting injectable however patient has itinerant lifestyle and this may be hard for him to procure Continue p.r.n. Cogentin 0.5 mg b.i.d. p.r.n. Positive for fentanyl however patient denies any intentional opiate use and not in withdrawal; denies EtOH use Will attempt collateral (which he says is the only way he remains in contact with his family) Patient educated on: diagnosis and medication risk/benefits Informed Consent: understands and further education needed Reason for continued inpatient stay Substantial Risk for: stable for discharge Time Spent With Patient Time: Total time managing care of this patient today ____ minutes.
[2023-06-03] MEDS: Nicotine Polacrilex 2 MG GUM 4 MG BUCCAL ×3 (11:49→18:40)
[2023-06-03 18:00] VITALS: BP 120/60; PULSE 78; TEMP 36.6; O2SAT 98
[2023-06-03] MEDS: traZODone HCL 50 MG TABLET PO (20:57)
[2023-06-03] MEDS: risperiDONE 2 MG TABLET PO (20:57)
[2023-06-04 07:00] VITALS: BMI 23.5
[2023-06-04 09:16] VITALS: BP 112/56; PULSE 51; RESP 16; TEMP 36; O2SAT 98
[2023-06-04] MEDS: Nicotine Polacrilex 2 MG GUM 4 MG BUCCAL ×3 (09:30→17:56)
--- NOTE | 2023-06-04 09:37 | P.PNPSI_ITS ---
Subjective Subjective Date of Service: 06/04/23 Reason For Visit: SI Interim History: Met?with?patient;?discussed?with?team P atient?says?he?is?doing?well,?good?mood,?sleeping?and?eating?well.??He?actually? joked?and?laughed?a?bit,?smiling?and?explained?to?principal technical writer?that H e?got?confused?when?principal technical writer?did?have?his?glasses?on.??Medications?well?tolerated. Mental Status Exam Mental Status Exam Narrative: Pt is alert and oriented; behavior is cooperative, polite, quiet and calm; patient is not in distress; dressed in hospital attire with unkempt hair; improved hygiene; mood is described as good and affect congruent,?brighter?more?expressive; eye contact appropriate; Speech is a?normal?rate,?volume?and?prosody; mild?psychomotor agitation present as he paces halls; thought process is goal directed; Thought content is somewhat vacuous but on treatment for depression; no paranoid or delusional thoughts expressed; no SI; no HI. Seems Internally preoccupied, though denies AVH Patients insight and judgment improved?and?adequate Diagnostics Vital Signs (24Hr): Vital Signs - 24 hr 06/03/23 18:00 06/04/23 09:16 Temperature 98 F 96.8 F Pulse Rate 78 51 Respiratory Rate 16 Blood Pressure 120/60 112/56 L Pulse Oximetry 98 98 Oxygen Delivery Method Room Air Room Air BMI result Body Mass Index 23.9 Labs 05/27/23 17:11 05/29/23 07:50 Medications Medications Current Medications Acetaminophen (Acetaminophen 325 Mg Tablet) 650 mg PO Q6H PRN PRN Reason: Headache/Pain Mild Scale (1-3) Al Hydroxide/Mg Hydroxide (Magnesium Hydrox/Alum Hydrox 30 Ml Oral.Susp) 30 ml PO Q6H PRN PRN Reason: Heartburn/Nausea Benztropine Mesylate (Benztropine Mesylate 0.5 Mg Tablet) 0.5 mg PO BID PRN PRN Reason: Dystonia/EPS Hydroxyzine HCl (Hydroxyzine Hcl 25 Mg Tablet) 25 mg PO Q6H PRN PRN Reason: Anxiety Magnesium Hydroxide (Milk Of Magnesia 30 Ml Oral.Susp) 30 ml PO DAILY PRN PRN Reason: Constipation Nicotine Polacrilex (Nicotine Polacrilex 2 Mg Gum) 4 mg BUCCAL Q2H PRN PRN Reason: nicotine cravings Last Admin: 06/04/23 09:30 Dose: 4 mg Risperidone (Risperidone 2 Mg Tablet) 2 mg PO BEDTIME AIDAN Last Admin: 06/03/23 20:57 Dose: 2 mg Trazodone HCl (Trazodone Hcl 50 Mg Tablet) 50 mg PO BEDTIME MRX1 PRN PRN Reason: Insomnia Last Admin: 06/03/23 20:57 Dose: 50 mg Allergies Allergies Allergy/AdvReac Type Severity Reaction Status Date / Time No Known Allergies Allergy Verified 05/27/23 16:46 Assessment & Plan Assessment & Plan (1) Schizoaffective disorder, depressive type: Status: Acute Code(s): F25.1 - Schizoaffective disorder, depressive type Plan Ptient is a 23-year-old male, born in [facility] and living in [facility] since 10 years old who presents with depression and SI in the face of homelessness and being out of medication. Patient was recently at another hospital in [facility] and said he had medications there but ran out. -patient reports that his only symptom is depression with SI; however he remembers the medication Risperdal having been helpful for his depression; also has been on Zyprexa, Cogentin and said at 1 point he thinks he was diagnosed with schizophrenia. Patient appears depressed. Could also be negative symptoms from psychosis. However he denies any other positive symptoms of psychosis and though somewhat reticent, so far he is organized in speech and behavior. Given his reported history of antipsychotic medication having been helpful will restart Risperdal -not sure what to make of his comment about having a parasite and being treated with medications; principal technical writer could not find history of prescription Hospital course: Reports he is depressed and denies any psychotic symptoms. Started on Risperdal which he said he took in the past and was helpful. 06/01 Patient reports that his depression is better. He says it is still somewhat there but significantly improved; denies any SI. Says medications are helping in his glad to get back onto it. Patient says it is okay for team to call his family to get history and gives his father's phone number. Patient pacing the evans much of the day during which time he makes Some odd hand movements. Otherwise remains in behavioral and impulse control. Pleasant on approach. Attending to ADLs 06/02 patient reports depression is better, no SI. Remains intermittently internally preoccupied, talking to himself which he says is part of his meditation as he paces the halls. Intermittently making odd hand gestures as well. May increase Risperdal; will hold for another day 06/03 remains internally preoccupied, talking to himself; agrees to increasing Risperdal ?patient?remains?internally?preoccupied?with?odd?hand?gestures?as?he?walks?do wn?the?evans.??But?his?affect?is?certainly?brighter?and?more E xpressive?and?patient?even?laughed?and?smiled?today?talking?with?principal technical writer.??Says?h is?mood?is?good?and? denies?any?other?psychiatric?symptoms.??Will?leave?Risperdal?at?current?dose E daniel?though?still?internally?preoccupied?as?it?is?possible?that?current?Risperdal ?dose?can?continue?to?be?increasingly?effective?over?time Plan: CV Q 15 minute checks Continue Risperdal 3 mg q.h.s.; will consider long-acting injectable however patient has itinerant lifestyle and this may be hard for him to procure Continue p.r.n. Cogentin 0.5 mg b.i.d. p.r.n. Positive for fentanyl however patient denies any intentional opiate use and not in withdrawal; denies EtOH use Will attempt collateral (which he says is the only way he remains in contact with his family) Patient educated on: diagnosis and medication risk/benefits Informed Consent: understands and further education needed Reason for continued inpatient stay Substantial Risk for: stable for discharge Time Spent With Patient Time: Total time managing care of this patient today ____ minutes.
[2023-06-04 17:19] VITALS: BP 129/60; PULSE 66; RESP 16; TEMP 36.3; O2SAT 99
[2023-06-04] MEDS: traZODone HCL 50 MG TABLET PO (21:09)
[2023-06-04] MEDS: risperiDONE 2 MG TABLET PO (21:09)
[2023-06-05 09:30] VITALS: BP 121/57; PULSE 56; RESP 16; TEMP 36.7; O2SAT 100
--- NOTE | 2023-06-05 09:50 | P.PNPSI_ITS ---
Subjective Subjective Date of Service: 06/05/23 Reason For Visit: SI Interim History: met with patient; discussed with team P atient?remains?doing?better.??Pleasant?and?cooperative?on?approach.??Still?keeps ?to?himself?and?pace s?the?evans,?internally?preoccupied?but?in?otherwise?good?impulse?and?behavioral? control. D enies?depression.??Discussed?DMH?services?and?patient?which?patient?would?like.? ?Discussed?dispo?and?patient?amenable?to?going?to?a?senior care Mental Status Exam Mental Status Exam Narrative: Pt is alert and oriented; behavior is cooperative, polite, quiet and calm; patient is not in distress; dressed in hospital attire with unkempt hair; improved hygiene; mood is described as good and affect congruent,?brighter?more?expressive; eye contact appropriate; Speech is a?normal?rate,?volume?and?prosody; mild?psychomotor agitation present as he paces halls; thought process is goal directed; Thought content is somewhat vacuous but on treatment for depression; no paranoid or delusional thoughts expressed; no SI; no HI. Seems Internally preoccupied, though denies AVH Patients insight and judgment improved?and?adequate Diagnostics Vital Signs (24Hr): Vital Signs - 24 hr 06/04/23 17:19 06/05/23 09:30 Temperature 97.4 F 98.1 F Pulse Rate 66 56 Respiratory Rate 16 16 Blood Pressure 129/60 121/57 L Pulse Oximetry 99 100 Oxygen Delivery Method Room Air Room Air BMI result Body Mass Index 23.5 Labs 05/27/23 17:11 05/29/23 07:50 Medications Medications Current Medications Acetaminophen (Acetaminophen 325 Mg Tablet) 650 mg PO Q6H PRN PRN Reason: Headache/Pain Mild Scale (1-3) Al Hydroxide/Mg Hydroxide (Magnesium Hydrox/Alum Hydrox 30 Ml Oral.Susp) 30 ml PO Q6H PRN PRN Reason: Heartburn/Nausea Benztropine Mesylate (Benztropine Mesylate 0.5 Mg Tablet) 0.5 mg PO BID PRN PRN Reason: Dystonia/EPS Hydroxyzine HCl (Hydroxyzine Hcl 25 Mg Tablet) 25 mg PO Q6H PRN PRN Reason: Anxiety Magnesium Hydroxide (Milk Of Magnesia 30 Ml Oral.Susp) 30 ml PO DAILY PRN PRN Reason: Constipation Nicotine Polacrilex (Nicotine Polacrilex 2 Mg Gum) 4 mg BUCCAL Q2H PRN PRN Reason: nicotine cravings Last Admin: 06/04/23 17:56 Dose: 4 mg Risperidone (Risperidone 2 Mg Tablet) 2 mg PO BEDTIME AIDAN Last Admin: 06/04/23 21:09 Dose: 2 mg Trazodone HCl (Trazodone Hcl 50 Mg Tablet) 50 mg PO BEDTIME MRX1 PRN PRN Reason: Insomnia Last Admin: 06/04/23 21:09 Dose: 50 mg Allergies Allergies Allergy/AdvReac Type Severity Reaction Status Date / Time No Known Allergies Allergy Verified 05/27/23 16:46 Assessment & Plan Assessment & Plan (1) Schizoaffective disorder, depressive type: Status: Acute Code(s): F25.1 - Schizoaffective disorder, depressive type Plan Ptient is a 23-year-old male, born in [facility] and living in [facility] since 10 years old who presents with depression and SI in the face of homelessness and being out of medication. Patient was recently at another hospital in [facility] and said he had medications there but ran out. -patient reports that his only symptom is depression with SI; however he remembers the medication Risperdal having been helpful for his depression; also has been on Zyprexa, Cogentin and said at 1 point he thinks he was diagnosed with schizophrenia. Patient appears depressed. Could also be negative symptoms from psychosis. However he denies any other positive symptoms of psychosis and though somewhat reticent, so far he is organized in speech and behavior. Given his reported history of antipsychotic medication having been helpful will restart Risperdal -not sure what to make of his comment about having a parasite and being treated with medications; curriculum writer could not find history of prescription Hospital course: Reports he is depressed and denies any psychotic symptoms. Started on Risperdal which he said he took in the past and was helpful. 06/01 Patient reports that his depression is better. He says it is still somewhat there but significantly improved; denies any SI. Says medications are helping in his glad to get back onto it. Patient says it is okay for team to call his family to get history and gives his father's phone number. Patient pacing the evans much of the day during which time he makes Some odd hand movements. Otherwise remains in behavioral and impulse control. Pleasant on approach. Attending to ADLs 06/02 patient reports depression is better, no SI. Remains intermittently internally preoccupied, talking to himself which he says is part of his meditation as he paces the halls. Intermittently making odd hand gestures as well. May increase Risperdal; will hold for another day 06/03 remains internally preoccupied, talking to himself; agrees to increasing Risperdal 06 04?patient?remains?internally?preoccupied?with?odd?hand?gestures?as?he?walks?denise n?the?evans.??But?his?affect?is?certainly?brighter?and?more E xpressive?and?patient?even?laughed?and?smiled?today?talking?with?curriculum writer.??Says?h is?mood?is?good?and? denies?any?other?psychiatric?symptoms.??Will?leave?Risperdal?at?current?dose E daniel?though?still?internally?preoccupied?as?it?is?possible?that?current?Risperdal ?dose?can?continue?to?be?increasingly?effective?over?time 06/05 remains w/ current presentation; wants [facility] and SW filling out application with him. Although pt is improved, he has numerous admissions due to lack of follow up;?patient?wants?help?and?it?is?curriculum writer's?opinion?that?it?is?very?beneficial?for ?him?to?stay?on?the? unit?a?little?longer?in?order?to?set?up?aftercare,?and?hopefully?stop?the?cycle? of?readmissions.? Plan: CV Q 15 minute checks Continue Risperdal 3 mg q.h.s.; will consider long-acting injectable however patient has itinerant lifestyle and this may be hard for him to procure Continue p.r.n. Cogentin 0.5 mg b.i.d. p.r.n. Positive for fentanyl however patient denies any intentional opiate use and not in withdrawal; denies EtOH use Will attempt collateral (which he says is the only way he remains in contact with his family) Patient educated on: diagnosis, medication risk/benefits and therapeutic strategies Informed Consent: understands Reason for continued inpatient stay Substantial Risk for: stable for discharge Time Spent With Patient Time: Total time managing care of this patient today ____ minutes.
[2023-06-05] MEDS: Nicotine Polacrilex 2 MG GUM 4 MG BUCCAL ×2 (09:53→17:44)
[2023-06-05 18:00] VITALS: BP 122/71; PULSE 58; RESP 18; TEMP 36.8; O2SAT 98
[2023-06-05] MEDS: traZODone HCL 50 MG TABLET PO (20:33)
[2023-06-05] MEDS: risperiDONE 2 MG TABLET PO (20:33)
[2023-06-06 09:30] VITALS: BP 113/57; PULSE 55; RESP 18; TEMP 36.9; O2SAT 98
[2023-06-06] MEDS: Nicotine Polacrilex 2 MG GUM 4 MG BUCCAL (10:09)
--- NOTE | 2023-06-06 11:45 | P.PNPSI_ITS ---
Subjective Subjective Date of Service: 06/06/23 Reason For Visit: SI Subjective Notes: Conditional Voluntary Interim History: Pt has been visible on the unit. Pt usually pacing, seen self dialoguing at times. He is pleasant on approach. He reports he is sleeping better. He denies SI/HI. He reports less VH/AH. Per nursing, pt slept through the night. Medication Compliance: Yes Side effects from medications: No Review of Systems Review of Systems Constitutional: No Fever, No Fatigue, No Malaise ENT/Mouth: No Ear Pain, No Nasal Congestion, No sore throat, No Rhinorrhea, No Swallowing Difficulty Eyes: No Eye Pain, No Swelling, No Redness, No Vision Changes Cardiovascular: No Chest Pain, No SOB, No Edema, No Palpitations Respiratory: No Cough, No Sputum, No Dyspnea Gastrointestinal: No Nausea, No Vomiting, No Diarrhea, No Constipation, + Abdominal pain, No Hematochezia, No Melena Genitourinary: No irregular bleeding, No Dysuria, No Urinary Frequency, + Hematuria, No Urinary Incontinence/retention, No Urgency, No Flank Pain Musculoskeletal: No joint pain, No Myalgias, No Joint Swelling Skin: No Skin Lesions, No rash Neuro: No Weakness, No Numbness, No Headache Psych: No Anxiety/Panic, +Depression, + SI, No HI/AH/VH, + Social Issues, Yes all other systems are reviewed and are negative Constitutional: Reports as per HPI Diagnostics Vital Signs (24Hr): Vital Signs - 24 hr 06/05/23 18:00 06/06/23 09:30 Temperature 98.3 F 98.5 F Pulse Rate 58 55 Respiratory Rate 18 18 Blood Pressure 122/71 113/57 L Pulse Oximetry 98 98 Oxygen Delivery Method Room Air Room Air BMI result Body Mass Index 23.5 Labs 05/27/23 17:11 05/29/23 07:50 Medications Medications Current Medications Acetaminophen (Acetaminophen 325 Mg Tablet) 650 mg PO Q6H PRN PRN Reason: Headache/Pain Mild Scale (1-3) Al Hydroxide/Mg Hydroxide (Magnesium Hydrox/Alum Hydrox 30 Ml Oral.Susp) 30 ml PO Q6H PRN PRN Reason: Heartburn/Nausea Benztropine Mesylate (Benztropine Mesylate 0.5 Mg Tablet) 0.5 mg PO BID PRN PRN Reason: Dystonia/EPS Hydroxyzine HCl (Hydroxyzine Hcl 25 Mg Tablet) 25 mg PO Q6H PRN PRN Reason: Anxiety Magnesium Hydroxide (Milk Of Magnesia 30 Ml Oral.Susp) 30 ml PO DAILY PRN PRN Reason: Constipation Nicotine Polacrilex (Nicotine Polacrilex 2 Mg Gum) 4 mg BUCCAL Q2H PRN PRN Reason: Nicotine Cravings Last Admin: 06/06/23 10:09 Dose: 4 mg Risperidone (Risperidone 2 Mg Tablet) 2 mg PO BEDTIME AIDAN Last Admin: 06/05/23 20:33 Dose: 2 mg Trazodone HCl (Trazodone Hcl 50 Mg Tablet) 50 mg PO BEDTIME PRN PRN Reason: Insomnia Allergies Allergies Allergy/AdvReac Type Severity Reaction Status Date / Time No Known Allergies Allergy Verified 05/27/23 16:46 Assessment & Plan Assessment & Plan (1) Schizoaffective disorder, depressive type: Status: Acute Code(s): F25.1 - Schizoaffective disorder, depressive type Plan Ptient is a 23-year-old male, born in [facility] and living in [facility] since 10 years old who presents with depression and SI in the face of homelessness and being out of medication. Patient was recently at another hospital in [facility] and said he had medications there but ran out. -patient reports that his only symptom is depression with SI; however he remembers the medication Risperdal having been helpful for his depression; also has been on Zyprexa, Cogentin and said at 1 point he thinks he was diagnosed with schizophrenia. Patient appears depressed. Could also be negative symptoms from psychosis. However he denies any other positive symptoms of psychosis and though somewhat reticent, so far he is organized in speech and behavior. Given his reported history of antipsychotic medication having been helpful will restart Risperdal -not sure what to make of his comment about having a parasite and being treated with medications; life underwriter could not find history of prescription Hospital course: Reports he is depressed and denies any psychotic symptoms. Started on Risperdal which he said he took in the past and was helpful. 06/01 Patient reports that his depression is better. He says it is still somewhat there but significantly improved; denies any SI. Says medications are helping in his glad to get back onto it. Patient says it is okay for team to call his family to get history and gives his father's phone number. Patient pacing the evans much of the day during which time he makes Some odd hand movements. Otherwise remains in behavioral and impulse control. Pleasant on approach. Attending to ADLs 06/02 patient reports depression is better, no SI. Remains intermittently internally preoccupied, talking to himself which he says is part of his meditation as he paces the halls. Intermittently making odd hand gestures as well. May increase Risperdal; will hold for another day 06/03 remains internally preoccupied, talking to himself; agrees to increasing Risperdal 06 04?patient?remains?internally?preoccupied?with?odd?hand?gestures?as?he?walks?denise n?the?evans.??But?his?affect?is?certainly?brighter?and?more E xpressive?and?patient?even?laughed?and?smiled?today?talking?with?life underwriter.??Says?h is?mood?is?good?and? denies?any?other?psychiatric?symptoms.??Will?leave?Risperdal?at?current?dose E daniel?though?still?internally?preoccupied?as?it?is?possible?that?current?Risperdal ?dose?can?continue?to?be?increasingly?effective?over?time 06/05 remains w/ current presentation; wants [facility] and SW filling out application with him. Although pt is improved, he has numerous admissions due to lack of follow up;?patient?wants?help?and?it?is?life underwriter's?opinion?that?it?is?very?beneficial?for ?him?to?stay?on?the? unit?a?little?longer?in?order?to?set?up?aftercare,?and?hopefully?stop?the?cycle? of?readmissions.? 06/06 continue tx. less paranoid, less psychosis, no aggression towards self or others. Plan: CV Q 15 minute checks Continue Risperdal 3 mg q.h.s.; will consider long-acting injectable however patient has itinerant lifestyle and this may be hard for him to procure Continue p.r.n. Cogentin 0.5 mg b.i.d. p.r.n. Positive for fentanyl however patient denies any intentional opiate use and not in withdrawal; denies EtOH use Will attempt collateral (which he says is the only way he remains in contact with his family) Reason for continued inpatient stay Substantial Risk for: inability to function Time Spent With Patient Time: Total time managing care of this patient today ____ minutes.
[2023-06-06 16:21] VITALS: BP 115/62; PULSE 56; TEMP 36.3; O2SAT 97
[2023-06-06] MEDS: risperiDONE 2 MG TABLET PO (20:34)
[2023-06-07 08:30] VITALS: BP 113/63; PULSE 86; RESP 18; TEMP 36.7; O2SAT 98
[2023-06-07] MEDS: Nicotine Polacrilex 2 MG GUM 4 MG BUCCAL ×3 (09:16→18:28)
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
--- NOTE | 2023-06-07 16:46 | PC.NURSE ---
Pt transferred to from on 06/07/23 at 1625 with belongings and chart. RN and security walked the patient to [facility]. He was calm, pleasant, and cooperative on approach. He was given a tour of the unit and shown his room. He is currently wandering around the day room and keeping to himself.
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
[2023-06-07 19:40] VITALS: BP 139/74; PULSE 58; RESP 16; TEMP 36.4; O2SAT 98
[2023-06-07] MEDS: risperiDONE 3 MG TABLET PO (21:04)
[2023-06-07] MEDS: traZODone HCL 50 MG TABLET PO (21:04)
[2023-06-08 06:00] VITALS: BP 128/68; PULSE 56; RESP 18; TEMP 36.2; O2SAT 100
[2023-06-08] MEDS: Nicotine Polacrilex 2 MG GUM 4 MG BUCCAL ×2 (09:12→13:08)
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
--- NOTE | 2023-06-08 16:29 | PC.NURSE ---
Patient engages easily. Blunted affect, good eye contact. Patient reports feeling ready for discharge. Planning to go to [facility] in [place]. Denies mood disturbances at this time. Denies depression or sadness, denies SI/HI plan or intent. Denies perceptual disturbances, denies A/V hallucinations, no expressed delusions during interaction. Medications reviewed with patient, directions given for pharmacy. Patient reports understanding. Appointments reviewed with patient, reports understanding. Crisis numbers provided to patient. All belongings taken with patient. Informed of [place] walk in clinic, instructions how to obtain PCP through [facility] provided.
== END 2023-06-08 16:00 | disposition home or self-care (01) | DRG 750 ==
LOC: HO.ED 22:39 → HO.PM5 05-28 14:52 → HO.PADLT16 06-07 14:47
PROVIDERS: Physician Assistant; Admitting Provider Social Worker; Emergency Provider Emergency Medicine Emergency Medical Services; Responsible Provider Registered Nurse; Visit Provider Psychiatry & Neurology Psychiatry
DX: F25.1 Schizoaffective disorder, depressive type (principal); R45.851 Suicidal ideations; Z59.02 Unsheltered homelessness; Z91.148 Patient's other noncompliance with medication regimen for other reason; F17.210 Nicotine dependence, cigarettes, uncomplicated; Z71.6 Tobacco abuse counseling; Z23 Encounter for immunization; Z20.822 Contact with and (suspected) exposure to COVID-19
CPT/HCPCS: 36415; 80053; 80061; 80143; 80179; 80307; 81003; 83690; 85025; 87635; 90686; 99285; S9485

== ENCOUNTER → 2023-05-28 14:47 | Outpatient (BNV) | payer OTHER, SELFPAY | PROVIDERS: Admitting Provider Social Worker; Emergency Provider Emergency Medicine Emergency Medical Services; Visit Provider Psychiatry & Neurology Psychiatry | DX: F25.1 Schizoaffective disorder, depressive type (principal) | CPT/HCPCS: 99222; 99231; 99232; 99238 ==